=== PATIENT | male | born 1970 ===

== ENCOUNTER 2024-07-26 06:45 | Day surgery (SDC) | payer OTHER ==
[~2024-07-26] VITALS: Ht 185.4 cm; Wt 90.7 kg
[2024-07-26] MEDS ORDERED: MEPERIDINE 100 MG INJ. 100 MG/ML VIAL ONE (07:27)
[2024-07-26] MEDS ORDERED: MIDAZOLAM HCL 5 MG/5 ML VIAL ONE (07:27)
[2024-07-26] MEDS ORDERED: SIMETHICONE 40 MG/0.6 ML ML ONE (07:27)
[2024-07-26 13:43] VITALS: O2SAT 100
[2024-07-26 16:24] VITALS: BP_SYST 129; PULSE 54; RESP 18; TEMP 97.1
== END 2024-07-26 10:12 | disposition home or self-care (01) ==
LOC: SDS 06:45 → SMU 06:46 → SDS 10:12
PROVIDERS: ATTEND Internal Medicine
DX: Z12.11 Encounter for screening for malignant neoplasm of colon (principal); K64.8 Other hemorrhoids; K64.4 Residual hemorrhoidal skin tags; M10.9 Gout, unspecified; Z98.890 Other specified postprocedural states
CPT/HCPCS: 45378; 99152; 99153; G0378; J2250; J2175